=== PATIENT | female | born 1960 | race Caucasian/White ===

== ENCOUNTER 2020-02-18 09:16 | Outpatient (CLI) | payer OTHER, SELFPAY ==
--- NOTE | 2020-02-18 09:26 | XRR_ITS ---
PROCEDURE INFORMATION: Exam: XR Left Wrist Exam date and time: 02/18/2020 9:34 AM Age: 59 years old Clinical indication: Pain; Wrist; Left; Prior surgery; Additional info: Pain in left wrist TECHNIQUE: Imaging protocol: XR Left wrist. Views: 3 or more views. COMPARISON: No relevant prior studies available. FINDINGS: Bones/joints: Postsurgical changes are present. The trapezium has been resected. No fracture or other acute bony abnormalities are seen. Mild chronic degenerative changes are present with mild joint space narrowing and tiny osteophyte formation. Soft tissues: Normal. XR/XR wrist LT min 3V* [id number] IMPRESSION: 1. Surgical resection of the trapezium. 2. Mild degenerative disease.
== END 2020-02-18 09:17 | disposition home or self-care (01) ==
LOC: RAD 09:23
PROVIDERS: PCP Nurse Practitioner; Visit Provider Nurse Practitioner Family
DX: M25.532 Pain in left wrist (principal)
CPT/HCPCS: 73110

== ENCOUNTER 2020-05-29 08:17 | Outpatient (CLI) | payer OTHER, SELFPAY ==
--- NOTE | 2020-05-29 08:30 | US_ITS ---
WS: [id number] ULTRASOUND ABDOMEN LIMITED CLINICAL INFORMATION: ELEVATED LIVER ENZYMES COMPARISON: None. FINDINGS: Liver Size: Enlarged Craniocaudal length: 18.6 cm. Echogenicity: Dense consistent with fatty infiltration Surface nodularity: None. Mass (size and location): None. Bile ducts Intrahepatic ducts: Normal. Common bile duct diameter: 0.4 cm. Gallbladder Normal. Gallstones: None. Gallbladder sludge: None. Gallbladder wall thickening: None. Pericholecystic fluid: None. Sonographic Black sign: Absent. Pancreas Normal as visualized. Right kidney: Normal. Hydronephrosis: None. Size: 11.9 cm x 5.3 cm x 4.3 cm. Abdominal aorta and IVC Visualized portions are normal. Ascites: None. US/US abdomen limited [id number] IMPRESSION: 1. Hepatomegaly with diffuse fatty infiltration. 2. Normal gallbladder and common bile duct. 3. No hydronephrosis in right kidney. 4. Normal common bile duct.
== END 2020-05-29 08:18 | disposition home or self-care (01) ==
LOC: RAD 08:23
PROVIDERS: PCP Nurse Practitioner Family; Visit Provider Nurse Practitioner Family
DX: R74.8 Abnormal levels of other serum enzymes (principal); R16.0 Hepatomegaly, not elsewhere classified; K76.0 Fatty (change of) liver, not elsewhere classified
CPT/HCPCS: 76705

== ENCOUNTER 2020-07-29 09:26 | Outpatient (CLI) | payer OTHER, SELFPAY ==
--- NOTE | 2020-07-29 09:35 | XR_ITS ---
WS: [id number] CHEST 2 VIEWS HISTORY: COUGH/FATIGUE COMPARISON: None available. Lungs: Slight elevation of the RIGHT hemidiaphragm. Prominent epicardial fat pad. No pneumonia. Silvia l vascularity. Cardiac size: Normal. Mediastinum/Aorta: Normal mediastinum. Bones: Normal. XR/XR chest 2V* [id number] IMPRESSION: Normal chest.
== END 2020-07-29 09:27 | disposition home or self-care (01) ==
PROVIDERS: PCP Nurse Practitioner Family; Visit Provider Nurse Practitioner Family
DX: R05 Cough (principal); R53.83 Other fatigue
CPT/HCPCS: 71046

== ENCOUNTER 2020-09-26 07:04 | Outpatient (CLI) | payer OTHER, SELFPAY ==
--- NOTE | 2020-09-26 07:14 | USCV_ITS ---
Gege Fitzpatrick Age: 60 Gender: F : 1960 Exam Date: 09/26/2020 07:29 Ordering Phys: Rylee Estrada NP Technologist: LESTER Exam Location: [facility] – [place] Indication: POST COVID FATIGUE BP: 120 / 87 HR: 97 Rhythm: Sinus Technical Quality: Adequate MEASUREMENTS (Male / Female) Normal Values 2D ECHO LV Chamber Size 2.8 cm RV Chamber Size 3.1 cm LVOT Diameter 2.7 cm LA Diameter 3.0 cm LA Width 2.2 cm LA Height 3.3 cm RA Width 3.4 cm RA Height 3.6 cm Aorta at Sinotubular Diameter 2.3 cm M-MODE LV Diastolic Diameter MM 3.7 cm 4.2 - 5.9 / 3.9 - 5.3 cm LV Systolic Diameter MM 2.4 cm LV Ejection Fraction MM Teich 64.6 % IVS Diastolic Thickness MM 0.9 cm 0.6 - 1.0 / 0.6 - 0.9 cm IVS Systolic Thickness MM 1.7 cm LVPW Diastolic Thickness MM 1.3 cm 0.6 - 1.0 / 0.6 - 0.9 cm LVPW Systolic Thickness MM 2.1 cm RV Diastolic Diameter MM 2.7 cm Aortic Annulus Diameter 3.3 cm LA Ao Ratio MM 1.0 MV E Point Septal Separation 0.6 cm DOPPLER AV Peak Velocity 122.0 cm/s LVOT Peak Velocity 81.0 cm/s AV Area Cont Eq vti 4.9 cm squared AV Area Cont Eq pk 3.8 cm squared MV Area PHT 4.8 cm squared Mitral E to A Ratio 0.7 MV E' Velocity 33.5 cm/s Mitral E to MV E' Ratio 5.8 Mitral E to LV E' Lateral Ratio 4.7 Mitral E to LV E' Septal Ratio 7.8 TR Peak Velocity 97.6 cm/s TR Peak Gradient 3.8 mmHg TR Mean Velocity 79.2 cm/s TR Mean Gradient 2.7 mmHg TR Velocity Time Integral 23.1 cm TV Peak E Velocity 70.0 cm/s Right Atrial Pressure 3.0 mmHg Pulmonary Artery Systolic Pressu 6.8 mmHg PV Peak Velocity 57.0 cm/s RV Acceleration Time 0.1 s RV Ejection Time 0.3 s RV AcT/ET 0.5 FINDINGS Left Ventricle Normal left ventricular cavity size. Normal left ventricular wall thickness. Normal left ventricular systolic function. Left ventricular ejection fraction is estimated at 65%. No regional wall motion abnormalities. Grade I diastolic dysfunction (abnormal relaxation filling pattern), normal to mildly elevated filling pressures. Right Ventricle Normal right ventricular size and systolic function. RVSP could not be calculated due to incomplete tricuspid regurgitation velocity profile. Right Atrium Normal right atrial size. Left Atrium Normal left atrial size. Mitral Valve Mild mitral annular calcification. Mildly thickened mitral valve. No mitral valve stenosis. Trace mitral valve regurgitation. Aortic Valve Mildly thickened trileaflet aortic valve. No aortic valve stenosis. No aortic valve regurgitation. Tricuspid Valve Structurally normal tricuspid valve. No tricuspid valve stenosis. Trace to mild tricuspid valve regurgitation. Pulmonic Valve Structurally normal pulmonic valve. Pericardium No pericardial effusion. Aorta Normal-sized aortic root. CONCLUSIONS 1. Normal left ventricular cavity size, wall thickness and systolic function. Left ventricular ejection fraction is estimated at 65%. No regional wall motion abnormalities. Grade I diastolic dysfunction (abnormal relaxation filling pattern), normal to mildly elevated filling pressures. 2. Normal right ventricular size and systolic function. 3. Trace to mild tricuspid valve regurgitation. 4. No prior similar studies to compare. Sandy Villegas MD (Electronically Signed) Final Date: 29 September 2020 18:00 S
== END 2020-09-26 07:05 | disposition home or self-care (01) ==
PROVIDERS: PCP Nurse Practitioner Family; Visit Provider Nurse Practitioner Family
DX: R53.83 Other fatigue (principal); R05 Cough; G47.10 Hypersomnia, unspecified; I07.1 Rheumatic tricuspid insufficiency
CPT/HCPCS: 93306

== ENCOUNTER 2020-09-29 12:00 | Outpatient (CLI) | payer OTHER, SELFPAY | END 2020-09-29 12:01 | disposition home or self-care (01) | LOC: SLEEP 09-30 10:31 | PROVIDERS: PCP Nurse Practitioner Family; Visit Provider Nurse Practitioner Family | DX: G47.10 Hypersomnia, unspecified (principal); R53.83 Other fatigue | CPT/HCPCS: G0399 ==

== ENCOUNTER 2020-11-17 07:32 | Outpatient (CLI) | payer OTHER, SELFPAY ==
--- NOTE | 2020-11-17 07:35 | ECG_ITS ---
[facility] Test Date: 2020-11-17 Pat Name: Gege Fitzpatrick Department: Room: Gender: Female Back Sizer: : 1960 Requested By: Rylee Estrada Order Number: [id number] Gaxiola MD: Isma Pérez M.D. Interpretive Statements NAME OF STUDY: LEXISCAN SESTAMIBI STRESS TEST INDICATION: [Shortness of Breath, ] Procedure: At the baseline, the blood pressure was 140/83 mmHg with a heart rate of 69 bpm. The electrocardiogram showed normal sinus rhythm, normal axis with normal ST and T's. The Lexiscan was infused over a period of 20 seconds. A total of 0.4 mg of Lexiscan was infused. The stress phase was continued for a total of 5 minutes. Heart rate was at the end of stress phase was 99 bpm and a blood pressure of 131/79 mmHg. The EKG at the peak infusion revealed since normal sinus rhythm with no significant ST-T wave changes. Sestamibi was injected 20 seconds after the Lexiscan infusion. Blood pressure at the end of recovery phase was 134/76 mmHg with a heart rate of 94 bpm. Conclusion: 1. Normal EKG response to Lexiscan infusion 2. No Lexiscan induced chest pain or cardiac arrhythmia. 3. Normal blood pressure and heart rate response. 4. Sestamibi/sestamibi perfusion scan pending; see separate report. Electronically Signed On 12-15-2020 10:25:00 ATTENDANT CHILD ACTIVITY by Isma Pérez M.D. [email or web address]
--- NOTE | 2020-11-17 07:36 | NMCV_ITS ---
NM madeleine perf SPECT r/s* [id number] Gege Fitzpatrick Age: 60 Gender: F : 1960 Exam Date: 11/17/2020 08:23 Ordering Phys: Rylee Estrada NP Technologist: TODD Haddad Exam Location: [facility] Indications: SHORTNESS OF BREATH STRESS TEST Please see separate stress test report in [facility] for full findings IMAGE PROTOCOL Rest/Stress 1 Lexiscan Day Radiopharmaceutical Dose (mCi) Administration Site Administered by Rest: Tc-99m 10.7 IV TODD Koch Sestamibi Stress:Tc-99m 32.4 IV TODD Haddad Sestamichao Rest: 17-Nov-2020 60 Discovery 630 Stress: 17-Nov-2020 30 Discovery 630 0.4mg Lexiscan. Images obtained in supine and prone position. SPECT RESULTS Technical Quality: Excellent Raw Data Analysis: Normal Image Corrections: No attenuation or motion correction applied Summed Stress Score: 1 Summed Rest Score: 0 Summed Difference Score: 1 PERFUSION FINDINGS There is small in size, reversible perfusion defect noted in the inferolateral wall FUNCTIONAL RESULTS (calculated via Gated SPECT) Stress Image LV EF (%): 67 Stress EDV (mL):83 TID: 0.91 Stress ESV (mL):27 FUNCTIONAL FINDINGS: There is normal left ventricular systolic function. IMPRESSIONS 1. There is a small in size, reversible perfusion defect in the inferolateral wall. This is consistent with small area of ischemia in this territory 2. LV systolic function is normal Isma Pérez MD (Electronically Signed) Final Date: 17 November 2020 11:57 S
[2020-11-17 07:51] VITALS: BMI 30.2
[2020-11-17] MEDS: regadenoson 0.4 Mg/5 ml Syringe IVP (09:32)
[2020-11-17 09:52] VITALS: BP 131/79; PULSE 98
== END 2020-11-17 07:33 | disposition home or self-care (01) ==
LOC: CDL 07:34
PROVIDERS: PCP Nurse Practitioner Family; Visit Provider Nurse Practitioner Family
DX: R06.02 Shortness of breath (principal)
CPT/HCPCS: 78452; 93017; A9500; J2785

== ENCOUNTER 2021-01-13 09:15 | Outpatient (CLI) | payer OTHER, SELFPAY ==
--- NOTE | 2021-01-13 09:20 | XR_ITS ---
WS: [id number] Exam: XR hip BI 3-4V wo/w pel [id number] Date/Time of Exam: 01/13/2021 9:20 AM Reason For Exam: BILAT HIP PAIN The bilateral hips demonstrate no evidence of fracture or dislocation. The joint compartments are wel l-maintained. Normal bilateral soft tissues. XR/XR hip BI 3-4V wo/w pel [id number] IMPRESSION: 1. Normal bilateral hips
--- NOTE | 2021-01-13 09:20 | XR_ITS ---
WS: [id number] LEFT KNEE: 2 VIEW(S) TECHNIQUE: AP and lateral. HISTORY: BILAT KNEE PAIN COMPARISON: None available. Mild narrowing of the patellofemoral and medial compartment. Small marginal osteophytes from the medi al tibial plateau. There are also osteophytes along the posterior surface of the tibial plateau which could be contributing to joint space narrowing and pain. No osteochondral lesion or fracture. No joint effusion. No soft tissue abnormality. XR/XR knee LT 1-2V [id number] IMPRESSION: 1. Mild medial and patellofemoral compartment narrowing. 2. Hypertrophic bone formation along the posterior tibial plateau extends towa rds the joint space could be causing discomfort during movement.
--- NOTE | 2021-01-13 09:20 | XR_ITS ---
WS: [id number] RIGHT KNEE: 2 VIEW(S) TECHNIQUE: AP and lateral. HISTORY: BILAT KNEE PAIN COMPARISON: None available. No fracture or dislocation. Mild narrowing of the medial patellofemoral compartments. Osteophytic ridging from the posterior tibi al plateau. No joint effusion. No soft tissue abnormality. XR/XR knee RT 1-2V [id number] IMPRESSION: Mild degenerative changes in the medial and patellofemoral compartments. No fra cture.
== END 2021-01-13 09:16 | disposition home or self-care (01) ==
PROVIDERS: PCP Nurse Practitioner Family; Visit Provider Nurse Practitioner Family
DX: M25.561 Pain in right knee; M25.562 Pain in left knee; M25.551 Pain in right hip; M25.552 Pain in left hip
CPT/HCPCS: 73522; 73560

== ENCOUNTER 2021-08-24 10:50 | Outpatient (CLI) | payer MEDICAID, SELFPAY ==
--- NOTE | 2021-08-24 11:01 | XR_ITS ---
WS: [id number] XR hand RT min 3V* [id number] REASON FOR EXAM: PAIN OF R THUMB/OSTEOARTHRITIS FINDINGS: No fracture or focal bone lesion. Mild narrowing with subchondral sclerosis in the PIP and DIP joints of the fingers and thumb. Similar but more pronounced arthropathic findings in the metatarsal-phalangeal joint of the thumb. Si milar arthropathic findings in the carpal metacarpal joint of the thumb. XR/XR hand RT min 3V* [id number] IMPRESSION: Osteoarthritis in the right hand as above.
== END 2021-08-24 10:51 | disposition home or self-care (01) ==
PROVIDERS: PCP Nurse Practitioner Family; Visit Provider Nurse Practitioner Family
DX: M19.041 Primary osteoarthritis, right hand (principal)
CPT/HCPCS: 73130

== ENCOUNTER 2023-06-15 07:53 | Outpatient (CLI) | payer SELFPAY ==
[2023-06-15 08:36] LABS: Creatinine Urine, Random 81 mg/dL (28-217); Microalbum Creatinine Ratio Ur 12 mg/dL (0-20); Microalbumin Random Urine 1 ug/dL (0-20)
[2023-06-15 08:39] LABS: Alanine Aminotransferase 44 U/L (0-33); Albumin Level 4.2 g/dL (3.5-5.2); Alkaline Phosphatase 123 U/L (35-105); Anion Gap 17.4 (5-19); Aspartate Amino Transferase 29 U/L (0-32); Blood Urea Nitrogen 17 mg/dL (8-23); Calcium 8.3 mg/dL (8.5-10.5); Carbon Dioxide 21 mmol/L (22-29); Chloride 101 mmol/L (98-107); Cholesterol 147 mg/dL (0-200); Globulin 2.9 g/dL (1.3-4.6); Glomerular Filtration Rate 84.2 mL/min (90-130); Glucose 399 mg/dL (65-115); HDL Cholesterol 35 mg/dL (60-100); LDL Cholesterol Calculated 81 mg/dL (50-129); LDL HDL Ratio 2.31 RATIO (0.00-3.22); Osmolality Calculated 298 mOsm/kg (285-295); Potassium 4.4 mmol/L (3.5-5.1); Sodium 135 mmol/L (136-145); Total Bilirubin 0.3 mg/dL (0.15-1.2); Total Protein 7.1 g/dL (6.6-8.7); Triglycerides 157 mg/dL (0-150)
[2023-06-15 08:56] LABS: Estmated Average Glucose 214; Hemoglobin A1C 9.1 % (4.0-6.0)
== END 2023-06-15 07:54 | disposition home or self-care (01) ==
LOC: LAB 07:54
PROVIDERS: Internal Medicine; PCP Family Medicine; Visit Provider Family Medicine
DX: E11.65 Type 2 diabetes mellitus with hyperglycemia (principal)
CPT/HCPCS: 36415; 80053; 80061; 82044; 83036; 99214

== ENCOUNTER 2023-08-03 14:22 | Observation (INO) | payer MEDICAID, SELFPAY ==
[2023-08-03] VITALS (15 sets, daily range): BP systolic 108–142; BP diastolic 41–78; PULSE 83–104; RESP 16–20; TEMP 36.3–36.8; O2SAT 95–99; BMI 33.1
[2023-08-03 15:39] LABS: Basophils # 0.1 10^3/uL (0.0-0.1); Eosinophils # 0.3 10^3/uL (0.0-0.8); Eosinophils % 3.8 %; Hematocrit 23.2 % (36-47); Lymphocytes # 2.7 10^3/uL (0.8-4.8); Lymphocytes % 32.2 %; Mean Corpuscular HGB Conc 27.6 g/dL (30-55); Mean Corpuscular Hemoglobin 20.8 pg (27-33); Mean Corpuscular Volume 75.3 fl (85-98); Mean Platelet Volume 10.2 fL (7.4-10.4); Monocytes # 0.6 10^3/uL (0.2-0.9); Monocytes % 7.3 %; Neutrophils % 55.1 %; Nucleated Red Blood Cells % 0.5 %; Platelet Count 274 10^3/cmm (157-399); Red Blood Count 3.08 10^6/uL (3.85-5.65); Red Cell Distribution Width 19.9 % (12.1-15.1); White Blood Count 8.35 10^3/uL (3.29-11.43)
[2023-08-03 15:55] LABS: Alanine Aminotransferase 48 U/L (0-33); Albumin Level 3.9 g/dL (3.5-5.2); Alkaline Phosphatase 110 U/L (35-105); Anion Gap 17.5 (5-19); Aspartate Amino Transferase 55 U/L (0-32); Blood Urea Nitrogen 16 mg/dL (8-23); Calcium 8.4 mg/dL (8.5-10.5); Carbon Dioxide 19 mmol/L (22-29); Chloride 102 mmol/L (98-107); Globulin 2.9 g/dL (1.3-4.6); Glucose 375 mg/dL (65-115); Osmolality Calculated 295 mOsm/kg (285-295); Potassium 4.5 mmol/L (3.5-5.1); Sodium 134 mmol/L (136-145); Total Bilirubin 0.3 mg/dL (0.15-1.2); Total Protein 6.8 g/dL (6.6-8.7)
--- NOTE | 2023-08-03 16:44 | P.HP_ITS ---
Providers/Chief Complaint 2 Primary Care Provider: Tierra Thomas MD Chief Complaint: dr karen, severe anemia, needs blood History of Present Illness Gege Fitzpatrick is a 63 year old female with past medical history type 2 diabetes mellitus, restless leg syndrome, hypothyroidism, hyperlipidemia who presents to the ER from her primary care's office because of low hemoglobin seen on regular blood work. As per the patient her back pain has been getting worse recently for which she started taking Aleve along with Celebrex after that she is started having episodes of nausea vomiting for last few weeks on and off along with dizziness for started last week specially on standing up. In the ER she was found to have a hemoglobin of 6.4. She has not noticed any bloody or black tarry bowel movements. Denies of having any endoscopy in the past. Denies of having any blood transfusion in the past. Review of Systems 2 General: Reports: 10 or more systems reviewed and unremarkable except in HPI and below Const: Denies: fever(s), chills, body aches, change in appetite, change in weight, malaise, night sweats, diaphoresis, change in sleep pattern, daytime sleepiness or snoring Eyes: Denies: change in vision, blurry vision, photophobia, eye discomfort or eye discharge ENMT: Denies: throat pain, enlarged tonsils, hoarseness, mouth pain, oral sores, dry mouth, tinnitus, nasal congestion or post nasal drip Card: Denies: chest pain, palpitations, irregular heart rhythm, edema, swelling of feet/ankles, lightheadedness, syncope, pre-syncope, dyspnea on exertion, orthopnea, leg pain with exertion or acrocyanosis Resp: Denies: dyspnea, productive cough, non-productive cough, wheezing, stridor, pain on inspiration, change in phlegm color, hemoptysis or chest congestion GI: Denies: abdominal pain, nausea, vomiting, hematemesis, coffee ground emesis, dysphagia, heartburn, diarrhea, constipation, bloating, GI cramping, change in bowel habits, pain on defecation, hematochezia or melena : Denies: flank pain, dysuria, urinary frequency, urinary urgency, urinary hesitancy, nocturia or hematuria Musc: Denies: neck pain, back pain, extremity pain, joint pain, joint swelling, joint redness, joint stiffness or limited range of motion Neuro: Denies: headache(s), numbness in extremities, weakness in extremities, sensory changes, lack of coordination, difficulty walking, frequent falls, dizziness, vertigo, confusion, Slurred speech present, difficulty communicating thoughts or seizure-like activity Psych: Denies: anxiety, depression, mood swings, panic attacks, hopelessness or irritability Endo: Denies: polyuria, polydipsia, tired all the time, cold intolerance, excessive sweating, flushing or heat intolerance Aki/Lymph: Denies: easy bruising or easy bleeding All/Imm: Denies: tongue swelling, facial swelling or acute wheezing Medications/Allergies Home Medications Medication Instructions Recorded Confirmed Last Taken Type CPAP (Auto-Titrating CPAP) 07/27/22 06/15/23 Unknown History albuterol sulfate 90 mcg/actuation 2 inh inhalation Q6H PRN 07/27/22 06/15/23 Unknown History breath activated powder inhaler blood-glucose meter,continuous 07/27/22 06/15/23 Unknown History ([employer] G6 Can Patcher) blood-glucose sensor (Dexcom G6 07/27/22 06/15/23 Unknown History Sensor device) blood-glucose transmitter (Dexcom 07/27/22 06/15/23 Unknown History G6 Transmitter device) celecoxib 100 mg capsule 100 mg PO BID 07/27/22 06/15/23 Unknown History duloxetine 60 mg capsule,delayed 60 mg PO DAILY 07/27/22 06/15/23 Unknown History release gabapentin 300 mg capsule 300 mg PO DAILY 07/27/22 06/15/23 Unknown History levothyroxine 25 mcg tablet 25 mcg PO DAILY 07/27/22 06/15/23 Unknown History omeprazole 20 mg capsule,delayed 20 mg PO DAILY 07/27/22 06/15/23 Unknown History release ropinirole 3 mg tablet 3 mg PO DAILY 07/27/22 06/15/23 Unknown History simvastatin 20 mg tablet 20 mg PO DAILY 07/27/22 06/15/23 Unknown History tramadol 50 mg tablet 50 mg PO BID PRN 07/27/22 06/15/23 Unknown History empagliflozin 25 mg tablet 25 mg PO DAILY #90 tabs 01/17/23 06/15/23 Unknown Rx (Jardiance) insulin glargine 100 unit/mL (3 60 unit (0.6 mL) SUBCUT DAILY #55 01/17/23 06/15/23 Unknown Rx mL) subcutaneous pen (Lantus mL Solostar U-100 Insulin) pen needle, diabetic 32 gauge x #100 ea 01/17/23 06/15/23 Unknown Rx 1/4 (BD Ultra-Fine Micro Pen Needle) exenatide 5 mcg/dose (250 5 mcg (0.02 mL) SUBCUT BID 30 days 06/14/23 06/15/23 Unknown Rx mcg/mL)1.2 mL subcutaneous pen #1.2 mL injector ([facility]) exenatide 10 mcg/dose(250 10 mcg (0.04 mL) SUBCUT BID #2.4 mL 06/15/23 06/15/23 Unknown Rx mcg/mL)2.4 mL subcutaneous pen injector (Byetta) Allergies Allergy/AdvReac Type Severity Reaction Status Date / Time dulaglutide [From [facility]] Allergy Intermediate ALGY-Rash Verified 08/03/23 14:48 metformin Allergy Intermediate ADR-Diarrhe Verified 08/03/23 14:48 a Penicillins Allergy hives Verified 08/03/23 14:48 PFSH Acute 2 PFSH: Medical History (Updated 08/03/23 @ 16:53 by oDm Walls MD) Osteoarthritis Peripheral neuropathy Sleep apnea Restless leg syndrome Hypothyroidism Breast hypertrophy Type 2 diabetes mellitus with hyperglycemia Surgical History (Updated 08/03/23 @ 16:53 by Dom Walls MD) History of bilateral breast reduction surgery History of hysterectomy History of bilateral tubal ligation Hx of lumpectomy Social History Smoking and tobacco/nicotine status: never used tobacco/nicotine Vitals/I&O/Wt Last Vital Signs Temp 97.4 F L 08/03/23 14:43 Pulse 88 08/03/23 16:18 Resp 16 08/03/23 14:43 BP 125/78 08/03/23 16:18 Pulse Ox 95 08/03/23 16:18 O2 Del Method Room Air 08/03/23 16:18 Weight last 48 hrs Weight 98.883 kg Physical Exam 2 Narrative: General: No acute distress, AO x3, pallor present, pleasant HEENT: PERRLA, pupils bilaterally equal and reactive Chest: Normal vesicular breath sounds, no added sounds, equal good air entry bilaterally CVS: S1-S2 regular, no murmurs, no tachycardia, no gallops, no rubs Abdomen: Soft, nontender, no organomegaly, bowel sounds present Neuro: No focal deficits, no facial deformity, AO x3, power 5/5 in all limbs Data 08/03/23 14:56 08/03/23 14:56 A&P Assessment and plan (1) Anemia: Unknown etiology. Denies any melena. Symptomatic with episodes of dizziness. Patient does have episode of nausea and vomiting which could be in setting of GERD. Check stool for occult blood. Protonix 40 IV twice daily. Carafate before meals and at bedtime. If appointment is positive we will consult surgery for possible EGD. Otherwise the last patient to follow-up as an outpatient with surgical team for further evaluation. Already ordered 2 units of blood transfusion in the ER. Check ferritin, TIBC, LDH, vitamin B12, reticulocyte count, folate level. Monitor CBC in AM. (2) Type 2 diabetes mellitus with hyperglycemia: Insulin sliding scale low-dose protocol. Recent A1c of 9.1. Continue home dose of Lantus 60 units (3) Transaminitis: Bilirubin normal, alkaline phosphatase elevated. Check hepatitis panel, HIV, LDH. Liver ultrasound. Plan Clear carb consistent diet Protonix 40 mg twice daily will be sufficient for PUD prophylaxis SCD for DVT prophylaxis. Not on medical prophylaxis given admission for acute anemia. Attestations 2 Medical Necessity Statement*: Admission for less than 2 midnights for management of acute anemia requiring blood transfusion Diagnoses Anemia D64.9 Type 2 diabetes mellitus with hyperglycemia E11.65 Transaminitis R74.01
--- NOTE | 2023-08-03 16:45 | ED_ITS ---
HPI - Recheck/Abnormal Lab/Rx 2 General: Chief Complaint: Recheck/Abnormal Lab/Rx Stated Complaint: dr jones, severe anemia, needs blood Time Seen by Provider: 08/03/23 16:08 History of Present Illness: 63-year-old female with a history of obs tructive sleep apnea, COPD, diabetes, hypothyroidism, hyperlipidemia who presents emergency room with complaint of low blood count. She says her primary had drawn labs yesterday and called her today and told her hemoglobin was low and she needed to come to the emergency room. She has been very convinced that this is related to her restless legs. She has had restless leg issues and pain in her thighs for a couple of years now. She says over the last month or so she has become more weak and tired. She has been lightheaded. She has had shortness of breath. She has not noticed any dark tarry stools or blood in her stool. No jaundice. No abdominal pain. No nausea or vomiting. No altered mental status. No focal motor deficits. Review of Systems 2 Narrative: Constitutional symptoms: Negative except as documented in HPI. Skin symptoms: Negative except as documented in HPI. Eye symptoms: Negative except as documented in HPI. ENMT symptoms: Negative except as documented in HPI. Respiratory symptoms: Negative except as documented in HPI. Cardiovascular symptoms: Negative except as documented in HPI. Gastrointestinal symptoms: Negative except as documented in HPI. Genitourinary symptoms: Negative except as documented in HPI. Musculoskeletal symptoms: Negative except as documented in HPI. Neurologic symptoms: Negative except as documented in HPI. Psychiatric symptoms: Negative except as documented in HPI. Endocrine symptoms: Negative except as documented in HPI. PFSH ED 2 PFSH: Medical History Type 2 diabetes mellitus with hyperglycemia Surgical History (Updated 08/03/23 @ 16:53 by Dom Walls MD) History of bilateral breast reduction surgery History of hysterectomy History of bilateral tubal ligation Hx of lumpectomy Social History Smoking and tobacco/nicotine status: never used tobacco/nicotine Physical Exam 2 Narrative: EXAM NARRATIVE: General: Alert, no acute distress. Skin: Warm, dry. Pale Head: Normocephalic, atraumatic. Neck: Supple, trachea midline. Eye: Extraocular movements are intact. Ears, nose, mouth and throat: mucosa moist. Cardiovascular: Regular, Normal peripheral perfusion. Respiratory: Lungs are clear to auscultation, respirations are non-labored, breath sounds are equal, Symmetrical chest wall expansion. Gastrointestinal: Soft, Nontender, Non distended Musculoskeletal: Normal ROM, no deformity. Neurological: Alert and oriented, No focal neurological deficit observed. Psychiatric: Cooperative, appropriate mood & affect. Course 2 Vital Signs: Vital signs: Vital Signs Temperature 97.4 F L 08/03/23 14:43 Pulse Rate 88 08/03/23 16:18 Respiratory Rate 16 08/03/23 14:43 Blood Pressure 125/78 08/03/23 16:18 Pulse Oximetry 95 08/03/23 16:18 Oxygen Delivery Me thod Room Air 08/03/23 16:18 MDM - Recheck/Abnormal Lab/Rx Medical Decision Making Medical decision making: Differential diagnosis including but not limited to and based on the above HPI, review of systems and physical exam: CBC, BMP and type and screen ordered initially. Have also added anemia studies. Orders placed to evaluate differential diagnosis based on the above differential, HPI and physical exam Lab Review: Laboratory results were reviewed and interpreted by myself the emergency room physician. Patient has a significant microcytic anemia with a hemoglobin of 6.4. No evidence of recent upper GI bleeding as her BUN and creatinine are 16 and 0.9. Her sugar is a bit high today at 375. I reviewed the patient's medical record. Reexamination: Patient remained stable. No increased work of breathing. No altered mental status. No focal motor deficits. Consultation: I spoke with Dr. Reid who agrees to observation and he will follow-up on the anemia studies. Assessment and plan: Microcytic anemia -I discussed the patient with the hospitalist on-call who is admitting the patient. - Discussed findings and plan with patient. Answered any questions. - All laboratory values were reviewed and interpreted personally by myself, the ER physician - All imaging was reviewed and interpreted personally by myself, the ER physician. - Evaluation and treatment of this problem were appropriate in the emergency setting Lab Data 08/03/23 14:56 08/03/23 14:56 Laboratory Results WBC 8.35 10^3/uL (3.29-11.43) 08/03/23 14:56 RBC 3.08 10^6/uL (3.85-5.65) L 08/03/23 14:56 Hgb 6.40 g/dL (11.27-16.99) L* 08/03/23 14:56 Hct 23.2 % (36-47) L 08/03/23 14:56 MCV 75.3 fl (85-98) L 08/03/23 14:56 MCH 20.8 pg (27-33) L 08/03/23 14:56 MCHC 27.6 g/dL (30-55) L 08/03/23 14:56 RDW 19.9 % (12.1-15.1) H 08/03/23 14:56 Plt Count 274 10^3/cmm (157-399) 08/03/23 14:56 MPV 10.2 fL (7.4-10.4) 08/03/23 14:56 Neut % (Auto) 55.1 % 08/03/23 14:56 Lymph % (Auto) 32.2 % 08/03/23 14:56 [place] % (Auto) 7.3 % 08/03/23 14:56 Eos % (Auto) 3.8 % 08/03/23 14:56 Baso % (Auto) 1.0 % 08/03/23 14:56 Neut # (Auto) 4.60 10^3/uL (1.8-7.7) 08/03/23 14:56 Lymph # (Auto) 2.7 10^3/uL (0.8-4.8) 08/03/23 14:56 [place] # (Auto) 0.6 10^3/uL (0.2-0.9) 08/03/23 14:56 Eos # (Auto) 0.3 10^3/uL (0.0-0.8) 08/03/23 14:56 Baso # (Auto) 0.1 10^3/uL (0.0-0.1) 08/03/23 14:56 Nucleated RBC % (auto) 0.5 % 08/03/23 14:56 Nucleated RBCs # 0.0 /100WBC 08/03/23 14:56 Sodium 134 mmol/L (136-145) L 08/03/23 14:56 Potassium 4.5 mmol/L (3.5-5.1) 08/03/23 14:56 Chloride 102 mmol/L (98-107) 08/03/23 14:56 Carbon Dioxide 19 mmol/L (22-29) L 08/03/23 14:56 Anion Gap 17.5 (5-19) 08/03/23 14:56 BUN 16 mg/dL (8-23) 08/03/23 14:56 Creatinine 0.9 mg/dL (0.5-0.9) 08/03/23 14:56 GFR Calculation 63.0 mL/min (90-130) L 08/03/23 14:56 Glucose 375 mg/dL (65-115) H 08/03/23 14:56 Calculated Osmolality 295 mOsm/kg (285-295) 08/03/23 14:56 Calcium 8.4 mg/dL (8.5-10.5) L 08/03/23 14:56 Total Bilirubin 0.3 mg/dL (0.15-1.2) 08/03/23 14:56 AST 55 U/L (0-32) H 08/03/23 14:56 ALT 48 U/L (0-33) H 08/03/23 14:56 Alkaline Phosphatase 110 U/L (35-105) H 08/03/23 14:56 Total Protein 6.8 g/dL (6.6-8.7) 08/03/23 14:56 Albumin 3.9 g/dL (3.5-5.2) 08/03/23 14:56 Globulin 2.9 g/dL (1.3-4.6) 08/03/23 14:56 Blood Type O Positive 08/03/23 14:34 Rho(D) Type Rh positive 08/03/23 14:34 Antibody Screen Negative 08/03/23 14:34 No radiology studies performed this visit Discharge Plan Discharge Patient Disposition: Placed in Observation Clinical Impression: Microcytic anemia Coding Level of Care Code ED Beater Machine Operator for Kassie Adams
--- NOTE | 2023-08-03 16:53 | USR_ITS ---
PROCEDURE INFORMATION: Exam: US Abdomen, Limited; Right Upper Quadrant Exam date and time: 08/03/2023 5:59 PM Age: 63 years old Clinical indication: Other: Transaminitis; Additional info: Transaminitis, elevated alp TECHNIQUE: Imaging protocol: Real time ultrasound of the abdomen with image documentation. Limited exam focused on the right upper quadrant. COMPARISON: US abdomen limited [id number] 05/29/2020 8:44 AM FINDINGS: Liver: There is diffuse increased echogenicity of the hepatic parenchyma consistent with fatty infiltration. No hepatic masses are identified by ultrasound. Liver is enlarged. Gallbladder: The gallbladder is normal. The wellness ambassador reports a negative sonographic Black's sign. Biliary ducts: There is no evidence of intra or extrahepatic ductal dilatation. The common bile duct measures 5 mm. Pancreas: The visualized portions of the pancreas are within normal limits. The tail is obscured by bowel gas. Right kidney: The right kidney is normal. There is no evidence of renal calcification or hydronephrosis. The right kidney measures 11 cm in length. Aorta: The aorta is within normal limits. Inferior vena cava: The inferior vena cava is within normal limits. Portal venous: The portal vein is patent. US/US liver [id number] IMPRESSION: 1. Enlarged, fatty liver. 2. Otherwise unremarkable right upper quadrant ultrasound.
[2023-08-03] MEDS: pantoprazole 40 mg SDV IVP (17:03)
[2023-08-03 17:26] LABS: Reticulocyte % 2.4 % (0.5-2.0)
[2023-08-03 18:01] LABS: Lactic Sepsis W/Reflex 0.6 mmol/L (0.5-2.2)
[2023-08-03 18:02] LABS: Acetaminophen < 5.0 ug/mL (10-30); Alcohol Level < 10 mg/dL (0-10); Ferritin 8 ng/mL (15-150); Iron 25 ug/dL (37-145); Lactate Dehydrogenase 118 U/L (135-214); Percent Saturation 6.3 % (20-50); Salicylate < 0.3 mg/dL (3-10); Total Iron Binding Capacity 396 mcg/dl; Unsaturated Iron Binding 371 ug/dL (112-347)
[2023-08-03 18:15] LABS: Folate Level 8.9 ng/mL (4.8-37.3)
[2023-08-03 18:16] LABS: Vitamin B12 343 pg/mL (232-1245)
[2023-08-03 18:54] LABS: Gamma Glutamyl Transferase 27 U/L (5-36)
[2023-08-03 19:50] LABS: HIV 1 & 2 Antibody Non-Reactive (Non-Reactiv); HIV 1 & 2 Antigen Non-Reactive (Non-Reactiv)
[2023-08-03 19:56] LABS: Thyroid Stimulating Hormone 2.16 uIU/mL (0.27-4.20)
[2023-08-03 21:01] LABS: Glucose Point of Care 179 mg/dL (70-110)
[2023-08-03] MEDS: insulin lispro 100 unit/1 mL SUBCUT (21:39)
[2023-08-03] MEDS: sucralfate 1 gm/10 mL Oral Liq UDC PO (21:39)
[2023-08-03 22:13] LABS: Hepatitis A Antibody IgM Non-Reactive (Nonreactive); Hepatitis B Core AB, Total Non-Reactive (Nonreactive); Hepatitis B Surface Antigen Non-Reactive (Nonreactive); Hepatitis C Virus Antibody Non-Reactive (Nonreactive)
[2023-08-03 22:22] LABS: Add Urine Microscopic? YES; Bilirubin Urine Neg (Negative); Blood Urine Neg (Negative); Glucose Urine UA 4+ (Normal); Ketones Urine Negative (Negative); Leukocyte Esterase Urine Trace (Negative); Nitrate Urine Negative (Negative); Protein Urine Neg (Negative); Urine Appearance Slightly Cloudy (CLEAR); Urine Color Yellow (Yellow); Urobilinogen Urine Neg (Negative); pH Urine 5 (5-7)
[2023-08-03 22:23] LABS: Add Urine Culture? No; Bacteria Urine 2+ /hpf; Mucus Urine 2+ /hpf; RBC Urine 0-4 /hpf (0-2); Squamous Epithelial Cell Urine 15-25 /hpf (0-5); WBC Urine 15-25 /hpf (0-5)
[2023-08-04] VITALS (7 sets, daily range): BP systolic 108–159; BP diastolic 64–81; PULSE 86–96; RESP 15–18; TEMP 36.7–37.2; O2SAT 95–97; BMI 33.1
[2023-08-04] MEDS: ropinirole 2 mg Tablet 3 MG PO (00:19)
[2023-08-04 01:29] LABS: Hepatitis B Surface AB 22.1 (11.5-1000)
[2023-08-04] MEDS: pantoprazole 40 mg SDV IVP (06:15)
[2023-08-04] MEDS: sucralfate 1 gm/10 mL Oral Liq UDC PO ×2 (06:15→11:17)
[2023-08-04 06:28] LABS: Glucose Point of Care 168 mg/dL (70-110)
[2023-08-04 07:31] LABS: Basophils # 0.1 10^3/uL (0.0-0.1); Basophils % 1.2 %; Eosinophils # 0.5 10^3/uL (0.0-0.8); Eosinophils % 7.5 %; Hematocrit 27.3 % (36-47); Lymphocytes # 2.6 10^3/uL (0.8-4.8); Lymphocytes % 35.5 %; Mean Corpuscular HGB Conc 28.9 g/dL (30-55); Mean Corpuscular Hemoglobin 21.6 pg (27-33); Mean Corpuscular Volume 74.8 fl (85-98); Mean Platelet Volume 10.3 fL (7.4-10.4); Monocytes # 0.5 10^3/uL (0.2-0.9); Neutrophils # 3.47 10^3/uL (1.8-7.7); Nucleated Red Blood Cells % 0.3 %; Platelet Count 249 10^3/cmm (157-399); Red Blood Count 3.65 10^6/uL (3.85-5.65); Red Cell Distribution Width 19.1 % (12.1-15.1); White Blood Count 7.24 10^3/uL (3.29-11.43)
[2023-08-04] MEDS: insulin lispro 100 unit/1 mL SUBCUT ×2 (07:47→12:38)
[2023-08-04 07:48] LABS: Alanine Aminotransferase 47 U/L (0-33); Albumin Level 3.8 g/dL (3.5-5.2); Alkaline Phosphatase 79 U/L (35-105); Anion Gap 12.8 (5-19); Aspartate Amino Transferase 48 U/L (0-32); Blood Urea Nitrogen 10 mg/dL (8-23); Calcium 8.3 mg/dL (8.5-10.5); Carbon Dioxide 21 mmol/L (22-29); Chloride 108 mmol/L (98-107); Globulin 2.5 g/dL (1.3-4.6); Glomerular Filtration Rate 100.6 mL/min (90-130); Glucose 148 mg/dL (65-115); Osmolality Calculated 288 mOsm/kg (285-295); Phosphorus 2.9 mg/dL (2.5-4.5); Potassium 3.8 mmol/L (3.5-5.1); Sodium 138 mmol/L (136-145); Total Bilirubin 0.9 mg/dL (0.15-1.2); Total Protein 6.3 g/dL (6.6-8.7)
[2023-08-04] MEDS: atorvastatin 40 mg Tablet 20 MG PO (09:50)
[2023-08-04] MEDS: gabapentin 300 mg Capsule PO (09:51)
[2023-08-04] MEDS: duloxetine 60 mg Capsule PO (09:51)
[2023-08-04] MEDS: insulin glargine 100 units/1 mL 60 UNIT SUBCUT (09:51)
[2023-08-04] MEDS: levothyroxine 25 mcg Tablet PO (09:51)
--- NOTE | 2023-08-04 11:26 | PM.DCS ---
Discharge Providers Date of Admission: 08/03/23 17:32 Date of Discharge: August 04, 2023 Attending Provider at Admission: Dom Walls MD Attending Provider at Discharge: Dom Walls MD Primary Care Provider: Tierra Thomas MD Diagnoses at Discharge Discharge Diagnosis (1) Anemia: Status: Acute (2) Type 2 diabetes mellitus with hyperglycemia: Status: Acute (3) Transaminitis: Status: Acute Reason for Visit Reason for Visit: dr karen, severe anemia, needs blood Hospital Course Hospital Course Gege Fitzpatrick is a 63 year old female with past medical history type 2 diabetes mellitus, restless leg syndrome, hypothyroidism, hyperlipidemia who presents to the ER from her primary care's office because of low hemoglobin seen on regular blood work. As per the patient her back pain has been getting worse recently for which she started taking Aleve along with Celebrex after that she is started having episodes of nausea vomiting for last few weeks on and off along with dizziness for started last week specially on standing up. In the ER she was found to have a hemoglobin of 6.4. She has not noticed any bloody or black tarry bowel movements. Denies of having any endoscopy in the past. Denies of having any blood transfusion in the past. Patient was admitted to the hospital further evaluation and management of acute anemia. She was transfused 2 unit of PRBC. Her hemoglobin appropriately came up to 7.9. Further blood work was done which was consistent with significant iron deficiency anemia. Patient did not have any bowel movements during hospitalization had stool for her but could not be checked. She has been discharged medically stable condition on oral iron supplementation, Protonix twice daily for next 4 weeks followed by once daily, Carafate ACHS for 4-week with advice to follow-up with surgery as an outpatient for possible endoscopy and colonoscopy. She should have a repeat CBC done in next 1 week. She is also advised to not take Aleve anymore though she would not continue taking Celebrex for now given significant back pain. Physical Exam Narrative: General: No acute distress, AO x3, pallor present, pleasant HEENT: PERRLA, pupils bilaterally equal and reactive Chest: Normal vesicular breath sounds, no added sounds, equal good air entry bilaterally CVS: S1-S2 regular, no murmurs, no tachycardia, no gallops, no rubs Abdomen: Soft, nontender, no organomegaly, bowel sounds present Neuro: No focal deficits, no facial deformity, AO x3, power 5/5 in all limbs Discharge Data Studies Completed and Pending Completed Studies During Hospitalization [place] [id number] Stat Ultrasound 08/03/23 16:53 Completed Pending at discharge Category Date Time Status Occult Blood Stool [Immunochemical Fecal OCB] Routine Lab 08/03/23 16:48 Uncollected Radiology Impressions Liver Ultrasound 08/03/23 16:53 IMPRESSION: 1. Enlarged, fatty liver. 2. Otherwise unremarkable right upper quadrant ultrasound. Laboratory Results WBC 7.24 10^3/uL (3.29-11.43) 08/04/23 06:31 RBC 3.65 10^6/uL (3.85-5.65) L 08/04/23 06:31 Hgb 7.90 g/dL (11.27-16.99) L 08/04/23 06:31 Hct 27.3 % (36-47) L 08/04/23 06:31 MCV 74.8 fl (85-98) L 08/04/23 06:31 MCH 21.6 pg (27-33) L 08/04/23 06:31 MCHC 28.9 g/dL (30-55) L 08/04/23 06:31 RDW 19.1 % (12.1-15.1) H 08/04/23 06:31 Plt Count 249 10^3/cmm (157-399) 08/04/23 06:31 MPV 10.3 fL (7.4-10.4) 08/04/23 06:31 Neut % (Auto) 48.0 % 08/04/23 06:31 Lymph % (Auto) 35.5 % 08/04/23 06:31 [place] % (Auto) 7.0 % 08/04/23 06:31 Eos % (Auto) 7.5 % 08/04/23 06:31 Baso % (Auto) 1.2 % 08/04/23 06:31 Reticulocyte % (Auto) 2.4 % (0.5-2.0) H 08/03/23 14:56 Neut # (Auto) 3.47 10^3/uL (1.8-7.7) 08/04/23 06:31 Lymph # (Auto) 2.6 10^3/uL (0.8-4.8) 08/04/23 06:31 [place] # (Auto) 0.5 10^3/uL (0.2-0.9) 08/04/23 06:31 Eos # (Auto) 0.5 10^3/uL (0.0-0.8) 08/04/23 06:31 Baso # (Auto) 0.1 10^3/uL (0.0-0.1) 08/04/23 06:31 Nucleated RBC % (auto) 0.3 % 08/04/23 06:31 Nucleated RBCs # 0.0 /100WBC 08/04/23 06:31 Haptoglobin 183.0 mg/L (30-200) 08/03/23 14:56 Sodium 138 mmol/L (136-145) 08/04/23 06:31 Potassium 3.8 mmol/L (3.5-5.1) 08/04/23 06:31 Chloride 108 mmol/L (98-107) H 08/04/23 06:31 Carbon Dioxide 21 mmol/L (22-29) L 08/04/23 06:31 Anion Gap 12.8 (5-19) 08/04/23 06:31 BUN 10 mg/dL (8-23) 08/04/23 06:31 Creatinine 0.6 mg/dL (0.5-0.9) 08/04/23 06:31 GFR Calculation 100.6 mL/min (90-130) 08/04/23 06:31 Glucose 148 mg/dL (65-115) H 08/04/23 06:31 POC Glucose 168 mg/dL (70-110) H 08/04/23 06:24 Calculated Osmolality 288 mOsm/kg (285-295) 08/04/23 06:31 Lactic Acid 0.6 mmol/L (0.5-2.2) 08/03/23 17:06 Calcium 8.3 mg/dL (8.5-10.5) L 08/04/23 06:31 Phosphorus 2.9 mg/dL (2.5-4.5) 08/04/23 06:31 Magnesium 2.0 mg/dL (1.7-2.3) 08/04/23 06:31 Iron 25 ug/dL (37-145) L 08/03/23 14:56 TIBC 396 mcg/dl 08/03/23 14:56 % Saturation 6.3 % (20-50) L 08/03/23 14:56 Unsat Iron Binding 371 ug/dL (112-347) H 08/03/23 14:56 Ferritin 8 ng/mL (15-150) L 08/03/23 14:56 Total Bilirubin 0.9 mg/dL (0.15-1.2) 08/04/23 06:31 GGT 27 U/L (5-36) 08/03/23 17:06 AST 48 U/L (0-32) H 08/04/23 06:31 ALT 47 U/L (0-33) H 08/04/23 06:31 Alkaline Phosphatase 79 U/L (35-105) 08/04/23 06:31 Lactate Dehydrogenase 118 U/L (135-214) L 08/03/23 14:56 Total Protein 6.3 g/dL (6.6-8.7) L 08/04/23 06:31 Albumin 3.8 g/dL (3.5-5.2) 08/04/23 06:31 Globulin 2.5 g/dL (1.3-4.6) 08/04/23 06:31 Vitamin B12 343 pg/mL (232-1245) 08/03/23 14:56 Folate 8.9 ng/mL (4.8-37.3) 08/03/23 14:56 TSH 2.16 uIU/mL (0.27-4.20) 08/03/23 14:56 Urine Color Yellow (Yellow) 08/03/23 22:08 Urine Appearance Slightly cloudy (CLEAR) 08/03/23 22:08 Urine pH 5 (5-7) 08/03/23 22:08 Ur Specific [place] 1.020 (1.005-1.030) 08/03/23 22:08 Urine Protein Neg (Negative) 08/03/23 22:08 Urine Glucose (UA) 4+ (Normal) H 08/03/23 22:08 Urine Ketones Negative (Negative) 08/03/23 22:08 Urine Blood Neg (Negative) 08/03/23 22:08 Urine Nitrate Negative (Negative) 08/03/23 22:08 Urine Bilirubin Neg (Negative) 08/03/23 22:08 Urine Urobilinogen Neg mg/dL (Negative) 08/03/23 22:08 Ur Leukocyte Esterase Trace (Negative) H 08/03/23 22:08 Urine RBC 0-4 /hpf (0-2) H 08/03/23 22:08 Urine WBC 15-25 /hpf (0-5) H 08/03/23 22:08 Ur Squamous Epith Cells 15-25 /hpf (0-5) H 08/03/23 22:08 Amorphous Sediment Not Reportable 08/03/23 22:08 Urine Bacteria 2+ /hpf (NONE) H 08/03/23 22:08 Urine Mucus 2+ /hpf 08/03/23 22:08 Urine Yeast Trace /hpf 08/03/23 22:08 Salicylates < 0.3 mg/dL (3-10) L 08/03/23 14:56 Acetaminophen < 5.0 ug/mL (10-30) L 08/03/23 14:56 Ethyl Alcohol < 10 mg/dL (0-10) 08/03/23 14:56 Hepatitis A IgM Ab Non-reactive (Nonreactive) 08/03/23 17:06 Hep Bs Antigen Non-reactive (Nonreactive) 08/03/23 17:06 Hep Bs Antibody 22.1 (11.5-1000) 08/03/23 17:06 Hep B Core Total Ab Non-reactive (Nonreactive) 08/03/23 17:06 Hepatitis C Antibody Non-reactive (Nonreactive) 08/03/23 17:06 HIV 1&2 Ab & HIV 1 Ag Non-reactive (Non-Reactiv) 08/03/23 17:06 HIV 1&2 Antibody Non-reactive (Non-Reactiv) 08/03/23 17:06 Blood Type O Positive 08/03/23 14:34 Rho(D) Type Rh positive 08/03/23 14:34 Antibody Screen Negative 08/03/23 14:34 Crossmatch See Detail 08/03/23 14:34 Vitals Last Vital Signs Temp 99.0 F 08/04/23 08:10 Pulse 86 08/04/23 08:10 Resp 16 08/04/23 08:10 BP 135/78 08/04/23 08:10 Pulse Ox 96 08/04/23 08:10 O2 Del Method Room Air 08/04/23 08:10 Discharge Plan Discharge Patient Disposition: Home Condition: Stable Prescriptions: New Protonix 40 mg tablet,delayed release (DR/EC) 40 mg PO QAM 90 Days Qty: 90 0RF Rx Instructions: BID for 4 weeks then daily Carafate 1 gram tablet 1 g PO BID 28 Days Qty: 56 0RF ferrous sulfate 325 mg (65 mg iron) tablet 325 mg PO BID Qty: 60 0RF Continued albuterol sulfate 90 mcg/actuation aerosol powdr breath activated 2 inh inhalation Q6H PRN (Reason: Shortness Of Breath) (DME) Auto-Titrating CPAP Device See Rx Instructions .Route Rx Instructions: As directed celecoxib 100 mg capsule 200 mg PO DAILY (DME) Dexcom G6 Care Management Coordinator Misc See Rx Instructions .Route Rx Instructions: As directed (DME) Dexcom G6 Sensor Device See Rx Instructions .Route Rx Instructions: As directed (DME) Dexcom G6 Transmitter Device See Rx Instructions .Route Rx Instructions: As directed duloxetine 60 mg capsule,delayed release(DR/EC) 60 mg PO DAILY gabapentin 300 mg capsule 300 mg PO DAILY levothyroxine 25 mcg tablet 25 mcg PO DAILY ropinirole 3 mg tablet 3 mg PO DAILY simvastatin 20 mg tablet 20 mg PO DAILY tramadol 50 mg tablet 50 mg PO BID PRN (Reason: Pain) (DME) pen needle, diabetic [BD Ultra-Fine Micro Pen Needle] 32 gauge x 1/4 needle See Rx Instructions .ROUTE .MEDSUPPLY Qty: 100 2RF Rx Instructions: As directed Jardiance 25 mg tablet 25 mg PO DAILY Qty: 90 1RF ondansetron 4 mg Tablet,Disintegrating 4 mg PO Q6H PRN (Reason: Nausea) sertraline 50 mg Tablet 50 mg PO DAILY [place] 10 mcg/dose(250 mcg/mL) 2.4 mL pen injector 10 mcg SUBCUT DAILY Rx Instructions: start after one month on 5mcg Lantus Solostar U-100 Insulin 100 unit/mL (3 mL) Insulin Pen 45 unit SUBCUT BID Discontinued omeprazole 20 mg capsule,delayed release(DR/EC) 40 mg PO DAILY Discharge Orders: Discharge Order (Routine); Ordered 08/04/23 Ordered By: Dom Walls Referrals: Carlos Hanley MD [Physician] - 1 month (Possible need of EGD for anemia on NSAIDs Dr. Hanley's Office has your information and will be calling you to schedule an appointment. You can also call their office with any questions or concerns. Thank you.) Tierra Thomas MD [Primary Care Provider] - 08/15/23 10:30 am (Your follow up appointment will be with Rylee Estrada. Dr. Thomas has no availability before then. They will then schedule you with Dr. Thomas for your next appointment. You can call the office with any questions or concerns. Thank you.) Discharge Diet: Regular Discharge Activity: Resume usual activity and Increase activity as tolerated Patient Instructions: Anemia, Iron Supplements (By mouth) (Duofer, Fe-20, Bifera, Madan-Iron), Sucralfate (By mouth) (Carafate), Pantoprazole (By mouth) (Protonix), Opioid Safety Activity Restrictions/Additional Instructions: Repeat CBC in 1 week and follow up with your PCP Take iron supplement with over the counter stool softner daily for atleast next 6 months. Take protonix 2 times a day for 4 weeks and then once daily. Discharge Attestations Time Spent in Discharge Care*: greater than 30 min Specific Discharge Activities: educating patient, educating and/or supporting family/caregiver, discussing with pcp/other providers, discussing with insurance case manager/social workers/dc planners, documenting/other paperwork and evaluating patient/reviewing data Quality Metrics Clinical Quality Measures [ No reported AMI, CVA or VTE this stay] Coding Level of Care Code 52162 Total time (in minutes) for Discharge: 60 Diagnoses Anemia D64.9 Type 2 diabetes mellitus with hyperglycemia E11.65 Transaminitis R74.01
[2023-08-04 11:41] LABS: Glucose Point of Care 200 mg/dL (70-110)
== END 2023-08-04 14:11 | disposition home or self-care (01) ==
LOC: ER 17:18 → MEDSURG 17:34
PROVIDERS: Emergency Medicine; Admitting Provider Student in an Organized Health Care Education/Training Program; Emergency Provider Emergency Medicine; PCP Family Medicine; Visit Provider Student in an Organized Health Care Education/Training Program
DX: D64.9 Anemia, unspecified (principal); E11.65 Type 2 diabetes mellitus with hyperglycemia; R74.01 Elevation of levels of liver transaminase levels; G25.81 Restless legs syndrome; E03.9 Hypothyroidism, unspecified; E78.5 Hyperlipidemia, unspecified; K76.0 Fatty (change of) liver, not elsewhere classified; M19.90 Unspecified osteoarthritis, unspecified site; G47.30 Sleep apnea, unspecified
CPT/HCPCS: 36415; 36416; 36430; 76705; 80053; 80307; 81001; 82607; 82728; 82746; 82962; 82977; 83010; 83540; 83550; 83605; 83615; 83735; 84100; 84443; 85025; 85045; 86705; 86706; 86709; 86803; 86850; 86900; 86920; 87340; 87806; 96372; 99285; C9113; G0378; J1815; P9016

== ENCOUNTER 2023-08-06 20:41 | Emergency (ER) | payer MEDICAID, SELFPAY ==
[2023-08-06 21:04] VITALS: BP 144/85; PULSE 87; RESP 18; TEMP 36.6; O2SAT 100; BMI 32.5
[2023-08-06 21:26] LABS: Basophils # 0.1 10^3/uL (0.0-0.1); Basophils % 0.9 %; Eosinophils # 0.1 10^3/uL (0.0-0.8); Hematocrit 29.5 % (36-47); Lymphocytes # 2.2 10^3/uL (0.8-4.8); Lymphocytes % 24.1 %; Mean Corpuscular HGB Conc 29.2 g/dL (30-55); Mean Corpuscular Volume 75.4 fl (85-98); Mean Platelet Volume 9.8 fL (7.4-10.4); Monocytes # 0.5 10^3/uL (0.2-0.9); Monocytes % 5.5 %; Neutrophils # 6.13 10^3/uL (1.8-7.7); Neutrophils % 67.6 %; Nucleated Red Blood Cells % 0.3 %; Platelet Count 274 10^3/cmm (157-399); Red Blood Count 3.91 10^6/uL (3.85-5.65); Red Cell Distribution Width 19.8 % (12.1-15.1); White Blood Count 9.06 10^3/uL (3.29-11.43)
--- NOTE | 2023-08-06 21:35 | ED_ITS ---
HPI - Nausea/Vomiting/Diarrhea 2 General: Chief complaint: Nausea/Vomiting/Diarrhea Stated complaint: N/V Time Seen by Provider: 08/06/23 21:34 History of Present Illness: 63-year-old female comes in today with c omplaints of nausea, weakness, and dizziness. Patient has a history of COPD, diabetes, anemia, restless legs, and high cholesterol. Patient had recently been in the hospital 2 days ago for anemia and 2 units of blood. Patient was discharged and felt well yesterday but today she woke up feeling dizzy and nauseous again. Patient reports it feels like when she had her decreased blood count. Patient brought in a stool sample to be checked for blood. Associated symtoms: Reports dizziness and headache(s) Review of Systems 2 General: Reports: 10 or more systems reviewed and unremarkable except in HPI and below Neuro: Reports: headache(s) and dizziness PFSH ED 2 PFSH: Medical History (Updated 08/06/23 @ 23:33 by BOUBACAR Jeong) Osteoarthritis Peripheral neuropathy Sleep apnea Restless leg syndrome Hypothyroidism Breast hypertrophy Type 2 diabetes mellitus with hyperglycemia Surgical History (Updated 08/03/23 @ 16:53 by Dom Walls MD) History of bilateral breast reduction surgery History of hysterectomy History of bilateral tubal ligation Hx of lumpectomy Social History Smoking and tobacco/nicotine status: never used tobacco/nicotine Physical Exam 2 Const: COMMON NORMALS: alert HENMT: COMMON NORMALS: normocephalic HEAD & SCALP: normocephalic Neck/C-Spine: COMMON NORMALS: full ROM Resp: COMMON NORMALS: normal respiratory effort and clear to auscultation bilaterally AUSCULTATION: clear to auscultation bilaterally Cardio: COMMON NORMALS: regular rate and regular rhythm RATE: regular rate RHYTHM: regular rhythm GI: COMMON NORMALS: non-tender Back/Pelvis: COMMON NORMALS: thoracic and lumbar spine normal to inspection Extremity: COMMON NORMALS: full ROM Neuro: SENSORIUM/ORIENTATION: Yes alert Skin: COMMON NORMALS: turgor normal GENERAL SKIN EXAM: turgor normal Course 2 Vital Signs: Vital signs: Vital Signs Temperature 98 F 08/06/23 21:04 Pulse Rate 87 08/06/23 21:04 Respiratory Rate 18 08/06/23 21:04 Blood Pressure 144/85 08/06/23 21:04 Pulse Oximetry 100 08/06/23 21:04 MDM - Nausea/Vomiting/Diarrhea Medical Decision Making 63-year-old female comes in today for complaints of lightheadedness and headache. On exam patient appears nontoxic. Reviewing the record we noted that patient had recently been admitted and discharged for blood transfusions due to anemia. Patient is awaiting follow-up with gastro for endoscopy. I further reviewed the record noted that patient's last hemoglobin was 7.9. Differential diagnoses includes anemia, stroke syndrome, ACS, malingering, hypotension orthostasis. CBC noted to increase in hemoglobin to 8.6, CMP was unremarkable. CT of the head was negative. Patient was given 1 L of IV fluids and Reglan with Benadryl for her headache. Patient had resolution of the headache and some improvement of dizziness. Believe patient most likely has some dizziness secondary to her anemia. Recommended continuing with plans for outpatient endoscopy and iron replacement therapy. Patient otherwise should maintain her chronic medical treatment. Patient reports understanding and agreed to plan and need for follow-up for worsening symptoms. Lab Data 08/06/23 21:12 08/06/23 21:[address] 08/06/23 21:40 IMPRESSION: No acute findings. Laboratory Results WBC 9.06 10^3/uL (3.29-11.43) 08/06/23 21:12 RBC 3.91 10^6/uL (3.85-5.65) 08/06/23 21:12 Hgb 8.60 g/dL (11.27-16.99) L 08/06/23 21:12 Hct 29.5 % (36-47) L 08/06/23 21:12 MCV 75.4 fl (85-98) L 08/06/23 21:12 MCH 22.0 pg (27-33) L 08/06/23 21:12 MCHC 29.2 g/dL (30-55) L 08/06/23 21:12 RDW 19.8 % (12.1-15.1) H 08/06/23 21:12 Plt Count 274 10^3/cmm (157-399) 08/06/23 21:12 MPV 9.8 fL (7.4-10.4) 08/06/23 21:12 Neut % (Auto) 67.6 % 08/06/23 21:12 Lymph % (Auto) 24.1 % 08/06/23 21:12 Pitkin % (Auto) 5.5 % 08/06/23 21:12 Eos % (Auto) 1.0 % 08/06/23 21:12 Baso % (Auto) 0.9 % 08/06/23 21:12 Neut # (Auto) 6.13 10^3/uL (1.8-7.7) 08/06/23 21:12 Lymph # (Auto) 2.2 10^3/uL (0.8-4.8) 08/06/23 21:12 Pitkin # (Auto) 0.5 10^3/uL (0.2-0.9) 08/06/23 21:12 Eos # (Auto) 0.1 10^3/uL (0.0-0.8) 08/06/23 21:12 Baso # (Auto) 0.1 10^3/uL (0.0-0.1) 08/06/23 21:12 Nucleated RBC % (auto) 0.3 % 08/06/23 21:12 Nucleated RBCs # 0.0 /100WBC 08/06/23 21:12 Sodium 137 mmol/L (136-145) 08/06/23 21:12 Potassium 4.1 mmol/L (3.5-5.1) 08/06/23 21:12 Chloride 104 mmol/L (98-107) 08/06/23 21:12 Carbon Dioxide 23 mmol/L (22-29) 08/06/23 21:12 Anion Gap 14.1 (5-19) 08/06/23 21:12 BUN 14 mg/dL (8-23) 08/06/23 21:12 Creatinine 0.6 mg/dL (0.5-0.9) 08/06/23 21:12 GFR Calculation 100.6 mL/min (90-130) 08/06/23 21:12 Glucose 162 mg/dL (65-115) H 08/06/23 21:12 Calculated Osmolality 288 mOsm/kg (285-295) 08/06/23 21:12 Calcium 9.0 mg/dL (8.5-10.5) 08/06/23 21:12 Total Bilirubin 0.4 mg/dL (0.15-1.2) 08/06/23 21:12 AST 26 U/L (0-32) 08/06/23 21:12 ALT 37 U/L (0-33) H 08/06/23 21:12 Alkaline Phosphatase 91 U/L (35-105) 08/06/23 21:12 Troponin T Baseline 8 ng/L (0-10) 08/06/23 21:12 Troponin T 120 Minute 6.00 ng/L (0-10) 08/06/23 23:03 Delta Troponin T -2.00 ABS# (0-10) L 08/06/23 23:03 Total Protein 7.0 g/dL (6.6-8.7) 08/06/23 21:12 Albumin 4.1 g/dL (3.5-5.2) 08/06/23 21:12 Globulin 2.9 g/dL (1.3-4.6) 08/06/23 21:12 Lipase 58 U/L (13-60) 08/06/23 21:12 All radiology interpretation(s) finalized by discharge Discharge Plan Discharge Patient Disposition: Home Clinical Impression: Headache Qualifiers: Headache type: unspecified Headache chronicity pattern: acute headache I ntractability: not intractable Qualified Code(s): R51.9 - Headache, unspecified Anemia Qualifiers: Anemia type: unspecified type Qualified Code(s): D64.9 - Anemia, unspecified Condition: Stable Prescriptions: No Action albuterol sulfate 90 mcg/actuation aerosol powdr breath activated 2 inh inhalation Q6H PRN (Reason: Shortness Of Breath) (DME) Auto-Titrating CPAP Device See Rx Instructions .Route Rx Instructions: As directed celecoxib 100 mg capsule 200 mg PO DAILY (DME) Dexcom G6 Customer Liaison Misc See Rx Instructions .Route Rx Instructions: As directed (DME) Dexcom G6 Sensor Device See Rx Instructions .Route Rx Instructions: As directed (DME) Dexcom G6 Transmitter Device See Rx Instructions .Route Rx Instructions: As directed duloxetine 60 mg capsule,delayed release(DR/EC) 60 mg PO DAILY gabapentin 300 mg capsule 300 mg PO DAILY levothyroxine 25 mcg tablet 25 mcg PO DAILY ropinirole 3 mg tablet 3 mg PO DAILY simvastatin 20 mg tablet 20 mg PO DAILY tramadol 50 mg tablet 50 mg PO BID PRN (Reason: Pain) (DME) pen needle, diabetic [BD Ultra-Fine Micro Pen Needle] 32 gauge x 1/4 needle See Rx Instructions .ROUTE .MEDSUPPLY Qty: 100 2RF Rx Instructions: As directed Jardiance 25 mg tablet 25 mg PO DAILY Qty: 90 1RF ondansetron 4 mg Tablet,Disintegrating 4 mg PO Q6H PRN (Reason: Nausea) sertraline 50 mg Tablet 50 mg PO DAILY Byetta 10 mcg/dose(250 mcg/mL) 2.4 mL pen injector 10 mcg SUBCUT DAILY Rx Instructions: start after one month on 5mcg Lantus Solostar U-100 Insulin 100 unit/mL (3 mL) Insulin Pen 45 unit SUBCUT BID Protonix 40 mg tablet,delayed release (DR/EC) 40 mg PO QAM 90 Days Qty: 90 0RF Rx Instructions: BID for 4 weeks then daily Carafate 1 gram tablet 1 g PO BID 28 Days Qty: 56 0RF ferrous sulfate 325 mg (65 mg iron) tablet 325 mg PO BID Qty: 60 0RF Discharge Orders: Discharge ED (Routine); Ordered 08/06/23 Ordered By: Maco Lugo Referrals: Tierra Thomas MD [Primary Care Provider] - Discharge Diet: Usual diet Discharge Activity: Increase activity as tolerated Patient Instructions: Anemia (ED) Activity Restrictions/Additional Instructions: Continue with healthy diet and routine medications as prescribed. Follow-up with primary care in 3 to 5 days for recheck. Return to ED for worsening symptoms such as noticeable blood in vomit or stool, severe shortness of breath, or new concerns. Coding Level of Care Code ED Packing Machine Tender for Kassie Adams
--- NOTE | 2023-08-06 21:40 | ECG_ITS ---
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 Measurements Intervals [place] Rate: 87 P: 58 GA: 167 QRS: 17 QRSD: 91 T: 46 QT: 377 QTc: 455 Interpretive Statements SINUS RHYTHM Possible left atrial enlargement LOW QRS VOLTAGE IN PRECORDIAL LEADS [QRS DEFLECTION < 1.0 mV IN CHEST LEADS] No previous ECG available for comparison Electronically Signed On 08-07-2023 21:00:38 CDT by Julissa Campbell M.D. [id number] f
--- NOTE | 2023-08-06 21:40 | CTR_ITS ---
PROCEDURE INFORMATION: Exam: CT Head Without Contrast Exam date and time: 08/06/2023 10:08 PM Age: 63 years old Clinical indication: Pain; Headache; Patient HX: C/O BROTHERS with nausea TECHNIQUE: Imaging protocol: Computed tomography of the head without contrast. Radiation optimization: All CT scans at this facility use at least one of these dose optimization techniques: automated exposure control; mA and/or kV adjustment per patient size (includes targeted exams where dose is matched to clinical indication); or iterative reconstruction. COMPARISON: No relevant prior studies available. RADIATION DOSE METRICS: Total DLP (mGy-cm): 998.98 FINDINGS: Brain: No acute intracranial hemorrhage. No territorial region of rosario-white dedifferentiation. No extra-axial collection. No mass effect or midline shift. 4 mm calcified extra-axial density on left parasagittal frontal convexity, may represent dural calcification or small partially calcified meningioma. Cerebral ventricles: No acute hydrocephalus. Paranasal sinuses: Visualized sinuses are well-aerated. No fluid levels. Mastoid air cells: Visualized mastoid air cells are well aerated. Orbital cavities: No acute abnormality. Bones: No acute fracture. Soft tissues: No acute abnormality. CT/CT head wo con* [id number] IMPRESSION: No acute findings.
[2023-08-06 21:43] LABS: Alanine Aminotransferase 37 U/L (0-33); Albumin Level 4.1 g/dL (3.5-5.2); Alkaline Phosphatase 91 U/L (35-105); Anion Gap 14.1 (5-19); Aspartate Amino Transferase 26 U/L (0-32); Blood Urea Nitrogen 14 mg/dL (8-23); Carbon Dioxide 23 mmol/L (22-29); Chloride 104 mmol/L (98-107); Creatinine Clr Calc Pharmacy 115.3941; Globulin 2.9 g/dL (1.3-4.6); Glomerular Filtration Rate 100.6 mL/min (90-130); Glucose 162 mg/dL (65-115); Lipase 58 U/L (13-60); Osmolality Calculated 288 mOsm/kg (285-295); Potassium 4.1 mmol/L (3.5-5.1); Sodium 137 mmol/L (136-145); Total Bilirubin 0.4 mg/dL (0.15-1.2)
[2023-08-06 22:01] LABS: Troponin(5th) Baseline 8 ng/L (0-10)
[2023-08-06] MEDS: sodium chloride 0.9% 1,000 ML 999 ML IV (22:16)
[2023-08-06] MEDS: ondansetron 2 mg/ML SDV 2 mL 4 MG IVP (22:17)
[2023-08-06] MEDS: metoclopramide 5 mg/mL SDV 2 mL 10 MG IVP (22:17)
[2023-08-06] MEDS: diphenhydrAMINE 50 mg/mL SDV 1mL 12.5 MG IVP (22:18)
[2023-08-06 23:37] LABS: Add Urine Microscopic? YES; Bilirubin Urine Neg (Negative); Blood Urine Neg (Negative); Glucose Urine UA 2+ (Normal); Ketones Urine Negative (Negative); Leukocyte Esterase Urine 1+ (Negative); Nitrate Urine Negative (Negative); Protein Urine Neg (Negative); Urine Appearance Clear (CLEAR); Urine Color Dark Yellow (Yellow); Urobilinogen Urine Neg (Negative); pH Urine 5 (5-7)
[2023-08-06 23:38] LABS: Bacteria Urine 1+ /hpf; Mucus Urine 1+ /hpf; RBC Urine 0-4 /hpf (0-2)
--- NOTE | 2023-08-06 23:40 | ECG_ITS ---
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 Measurements Intervals [place] Rate: 87 P: 58 NC: 167 QRS: 17 QRSD: 91 T: 46 QT: 377 QTc: 455 Interpretive Statements SINUS RHYTHM LOW QRS VOLTAGE IN PRECORDIAL LEADS [QRS DEFLECTION < 1.0 mV IN CHEST LEADS] No previous ECG available for comparison Electronically Signed On 08-07-2023 21:10:51 CDT by Julissa Campbell M.D. [id number]
[2023-08-07 00:07] VITALS: BP 150/85; PULSE 93; RESP 16; O2SAT 92
== END 2023-08-07 00:05 | disposition home or self-care (01) ==
PROVIDERS: Emergency Medicine; Emergency Provider Nurse Practitioner Family; PCP Family Medicine
DX: R51.9 Headache, unspecified (principal); D64.9 Anemia, unspecified; Z79.4 Long term (current) use of insulin; E11.42 Type 2 diabetes mellitus with diabetic polyneuropathy
CPT/HCPCS: 36415; 70450; 80053; 81001; 82274; 83690; 84484; 85025; 93005; 96361; 96374; 96375; 99285; J1200; J2405; J2765; J7030

== ENCOUNTER 2023-09-19 11:11 | Outpatient (CLI) | payer MEDICAID, SELFPAY ==
[2023-09-19 11:35] LABS: Basophils # 0.1 10^3/uL (0.0-0.1); Basophils % 1.1 %; Eosinophils # 0.2 10^3/uL (0.0-0.8); Eosinophils % 2.1 %; Hematocrit 32.8 % (36-47); Lymphocytes # 4.2 10^3/uL (0.8-4.8); Lymphocytes % 40.6 %; Mean Corpuscular HGB Conc 29.9 g/dL (30-55); Mean Corpuscular Volume 80.4 fl (85-98); Mean Platelet Volume 9.8 fL (7.4-10.4); Monocytes # 0.6 10^3/uL (0.2-0.9); Monocytes % 5.4 %; Neutrophils % 50.4 %; Nucleated Red Blood Cells % 0.3 %; Platelet Count 379 10^3/cmm (157-399); Red Blood Count 4.08 10^6/uL (3.85-5.65); Red Cell Distribution Width 22.5 % (12.1-15.1); White Blood Count 10.32 10^3/uL (3.29-11.43)
[2023-09-19 11:54] LABS: Alanine Aminotransferase 44 U/L (0-33); Albumin Level 4.6 g/dL (3.5-5.2); Alkaline Phosphatase 85 U/L (35-105); Anion Gap 16.8 (5-19); Aspartate Amino Transferase 41 U/L (0-32); Blood Urea Nitrogen 15 mg/dL (8-23); Calcium 8.8 mg/dL (8.5-10.5); Carbon Dioxide 22 mmol/L (22-29); Chloride 108 mmol/L (98-107); Chol HDL Ratio 2.76 mg/dL (0.0-4.40); Cholesterol 116 mg/dL (0-200); Globulin 2.8 g/dL (1.3-4.6); Glomerular Filtration Rate 72.2 mL/min (90-130); Glucose 108 mg/dL (65-115); HDL Cholesterol 42 mg/dL (60-100); LDL Cholesterol Calculated 58 mg/dL (50-129); LDL HDL Ratio 1.38 RATIO (0.00-3.22); Osmolality Calculated 297 mOsm/kg (285-295); Potassium 3.8 mmol/L (3.5-5.1); Sodium 143 mmol/L (136-145); Total Bilirubin 0.3 mg/dL (0.15-1.2); Total Protein 7.4 g/dL (6.6-8.7); Triglycerides 78 mg/dL (0-150)
[2023-09-19 11:59] LABS: Estmated Average Glucose 146; Hemoglobin A1C 6.7 % (4.0-6.0)
[2023-09-19 12:34] LABS: Creatinine Urine, Random 77 mg/dL (28-217); Microalbum Creatinine Ratio Ur 13 mg/dL (0-20); Microalbumin Random Urine 1 ug/dL (0-20)
[2023-09-20 11:15] LABS: C-Peptide 5.06 ng/mL (0.80-3.85)
== END 2023-09-19 11:12 | disposition home or self-care (01) ==
LOC: LAB 11:12
PROVIDERS: PCP Family Medicine; Visit Provider Internal Medicine
DX: E11.65 Type 2 diabetes mellitus with hyperglycemia (principal); E78.2 Mixed hyperlipidemia; D64.9 Anemia, unspecified
CPT/HCPCS: 36415; 80053; 80061; 82044; 83036; 84681; 85025; 86337; 86341

== ENCOUNTER 2023-10-26 08:15 | Outpatient (CLI) | payer MEDICAID, SELFPAY ==
--- NOTE | 2023-10-26 08:17 | FL_ITS ---
WS: [id number] Barium swallow and esophagram, 10/26/2023 Clinical Data: DYSPHAGIA,PHARYNGOESOPHAGEAL PHASE/PAIN IN THROAT Comparison: None. Fluoroscopy time: 1min [id number] # of spot films: 8 Findings: The patient swallowed the thick and thin barium, and it flowed through the hypopharynx without hesita tion. No stricture, mass, polyp or erosion was seen. No aspiration or penetration occurred. The barium entered the esophagus and there was normal motility throughout. No reflux, stricture, margarita yp, mass, erosion or ulcer was noted. There was a small sliding hiatal hernia. The barium passed norm ally into the stomach. FL/FL barium swallow [id number] Impression: Small sliding hiatal hernia.
== END 2023-10-26 08:16 | disposition home or self-care (01) ==
LOC: RAD 08:15
PROVIDERS: PCP Family Medicine; Visit Provider Otolaryngology
DX: R13.14 Dysphagia, pharyngoesophageal phase (principal); D37.039 Neoplasm of uncertain behavior of the major salivary glands, unspecified; R07.0 Pain in throat; K44.9 Diaphragmatic hernia without obstruction or gangrene
CPT/HCPCS: 74220

== ENCOUNTER → 2023-10-31 15:40 | Outpatient (BNVA) | payer MEDICAID, SELFPAY | PROVIDERS: PCP Family Medicine; Visit Provider Internal Medicine Cardiovascular Disease | DX: I21.29 ST elevation (STEMI) myocardial infarction involving other sites (principal); I49.8 Other specified cardiac arrhythmias; R07.9 Chest pain, unspecified | CPT/HCPCS: 93005 ==

== ENCOUNTER 2023-11-02 13:00 | Outpatient (CLI) | payer MEDICAID, SELFPAY ==
--- NOTE | 2023-11-02 13:08 | CTR_ITS ---
PROCEDURE INFORMATION: Exam: CT Neck With Contrast Exam date and time: 11/02/2023 2:05 PM Age: 63 years old Clinical indication: Dysphagia / difficulty swallowing; Patient HX: Dysphagisa, pharyngoesophageal phase, pain in throat x 2-3 months. PT states she feels 2 knots. Bb placed; Additional info: Dysphagia, pharyngoesophageal phase/pain in throat TECHNIQUE: Imaging protocol: Computed tomography of the neck with contrast. Radiation optimization: All CT scans at this facility use at least one of these dose optimization techniques: automated exposure control; mA and/or kV adjustment per patient size (includes targeted exams where dose is matched to clinical indication); or iterative reconstruction. Contrast material: OMNI 350; Contrast volume: 100 ml; Contrast route: INTRAVENOUS (IV); COMPARISON: RF FL barium swallow [id number] 10/26/2023 8:28 AM RADIATION DOSE METRICS: Total DLP (mGy-cm): 247.6 FINDINGS: Salivary glands: Normal. Glands are normal in size. Pharynx: Unremarkable. No significant tonsillar enlargement. Prevertebral and retropharyngeal spaces: Unremarkable. Larynx: Unremarkable. Epiglottis is normal. Thyroid: Normal. No enlarged or calcified nodules. Trachea: Visualized trachea is unremarkable. Lungs: Unremarkable as visualized. Lymph nodes: Minimal prominence of lymph nodes in the neck, possibly corresponding to palpable abnormalities but they do not appear abnormally enlarged. Bones/joints: Partial fusion across C3-C4. Mild anterolisthesis C4-C5 with bilateral C4-C5 facet arthropathy. Soft tissues: Unremarkable. No significant soft tissue swelling. CT/CT neck w con* [id number] IMPRESSION: Minimal prominence of lymph nodes in the neck, possibly corresponding to palpable lesions but they do not appear abnormally enlarged.
[2023-11-02] MEDS: iohexol 350 mg/mL 500 mL Btl (per mL) IV (15:08)
== END 2023-11-02 13:01 | disposition home or self-care (01) ==
LOC: RAD 13:01
PROVIDERS: PCP Family Medicine; Visit Provider Otolaryngology
DX: R13.14 Dysphagia, pharyngoesophageal phase (principal); D37.039 Neoplasm of uncertain behavior of the major salivary glands, unspecified; R07.0 Pain in throat
CPT/HCPCS: 70491

== ENCOUNTER 2023-11-30 06:01 | Outpatient (CLI) | payer MEDICAID, SELFPAY ==
--- NOTE | 2023-11-30 06:15 | USCV_ITS ---
Gege Fitzpatrick Age: 63 Gender: F : 1960 Exam Date: 11/30/2023 06:19 Ordering Phys: Julissa Campbell MD ([email or web address]) Technologist: SARAHI Exam Location: [facility] [place] Indication: CHEST PAIN BP: 126 / 84 HR: 85 Rhythm: Sinus Technical Quality: Adequate MEASUREMENTS (Male / Female) Normal Values 2D ECHO LV Diastolic Diameter PLAX 4.2 cm 4.2 - 5.9 / 3.9 - 5.3 cm IVS Diastolic Thickness 1.1 cm 0.6 - 1.0 / 0.6 - 0.9 cm IVS Systolic Thickness 2.1 cm LVPW Diastolic Thickness 1.6 cm 0.6 - 1.0 / 0.6 - 0.9 cm LVPW Systolic Thickness 2.0 cm LVOT Diameter 2.0 cm LV Ejection Fraction 2D Teich 66.0 % LV Ejection Fraction MOD 4C 66.8 % LV Ejection Fraction MOD 2C 63.3 % LV Ejection Fraction 2C AL 63.3 % LA Diameter 3.4 cm RA Systolic Volume 4C AL 22.0 ml RA Systolic Volume 4C MOD 21.6 ml LA Sys Volume AL 30.2 cm cubed LA Sys Volume Index AL 13.6 cm cubed/m squared Aorta at Sinotubular Diameter 2.2 cm IVC Diameter 1.3 cm M-MODE LA Ao Ratio MM 1.3 AV Cusp Separation MM 1.6 cm DOPPLER AV Peak Velocity 134.0 cm/s LVOT Peak Velocity 91.0 cm/s AV Area Cont Eq vti 2.2 cm squared AV Area Cont Eq pk 2.1 cm squared MV Peak Velocity 107.0 cm/s MV Area PHT 5.6 cm squared TR Peak Velocity 121.0 cm/s TR Peak Gradient 5.9 mmHg TR Mean Velocity 102.0 cm/s TR Mean Gradient 4.4 mmHg TR Velocity Time Integral 34.6 cm TV Peak E Velocity 57.0 cm/s Right Atrial Pressure 3.0 mmHg Pulmonary Artery Systolic Pressu 8.9 mmHg PV Peak Velocity 84.0 cm/s RV Ejection Time 0.3 s FINDINGS Left Ventricle Normal left ventricular size and systolic function, EF 63%.no regional wall motion abnormalities. Technically difficult study because of the poor ultrasonic window Right Ventricle The right ventricle is normal in size and function. Right Atrium The right atrium is normal in size. Left Atrium The left atrium is normal in size. Mitral Valve No gross abnormalities noted Aortic Valve No gross abnormalities noted Tricuspid Valve Trace tricuspid valve regurgitation. Pulmonic Valve No gross abnormalities noted Pericardium Normal pericardium without effusion. Aorta Normal size aortic root and proximal ascending aorta. IVC Inferior vena cava not visualized. CONCLUSIONS Normal left ventricular size and systolic function, EF 63%. No regional wall motion abnormalities. Possibly normal chamber sizes. No gross valvular abnormalities. Trace of tricuspid regurgitation. Technically difficult study because of poor ultrasonic window Dr Julissa Campbell MD FACC (Electronically Signed) Final Date: 08 December 2023 08:23 S
== END 2023-11-30 06:02 | disposition home or self-care (01) ==
LOC: RAD 06:02
PROVIDERS: PCP Family Medicine; Visit Provider Internal Medicine Cardiovascular Disease
DX: R06.09 Other forms of dyspnea (principal)
CPT/HCPCS: 93306

== ENCOUNTER 2024-02-02 11:56 | Outpatient (CLI) | payer MEDICAID, SELFPAY ==
--- NOTE | 2024-02-02 12:11 | ECG_ITS ---
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 Interpretive Statements Lung unchanged pre/post procedure; Intraprocedure shortess of breath; Symptoms resoled by discharge PROCEDURE: At the baseline, the patient's blood pressure was with a heart rate of. The baseline electrocardiogram showed normal sinus rhythm with some nonspecific ST changes. The patient exercised for 4 minutes and 13 seconds on a standard Gareth protocol. Patient attained a maximum heart rate of 142 beats per minute(91% of the maximum predicted heart rate) with a blood pressure at the peak exercise of 196/83 mm Hg. The EKG at the peak exercise revealed some nonspecific ST change. Patient did not have any chest pain or any significant cardiac arrhythmias with the exercise During the recovery phase, there were no new changes. Blood pressure at the end of the recovery phase was 119/82 mm Hg with a heart rate of 89 per minute. CONCLUSION: 1. Nonspecific EKG response to treadmill exercise 2. No exercise-induced chest pain or cardiac arrhythmia 3. Impaired exercise tolerance, attained a maximum of 7.0 METs Electronically Signed On 02-03-2024 16:32:46 MEDICAL CLAIMS MANAGER by Julissa Campbell M.D. [email or web address]
[2024-02-02 12:15] VITALS: BMI 32.6
[2024-02-02 12:45] VITALS: BP 119/82; PULSE 89
== END 2024-02-02 11:57 | disposition home or self-care (01) ==
PROVIDERS: PCP Family Medicine; Visit Provider Internal Medicine Cardiovascular Disease
DX: R07.9 Chest pain, unspecified (principal); R06.09 Other forms of dyspnea; R06.02 Shortness of breath; E78.2 Mixed hyperlipidemia; E11.65 Type 2 diabetes mellitus with hyperglycemia
CPT/HCPCS: 93017

== ENCOUNTER 2024-04-04 10:40 | Outpatient (CLI) | payer MEDICAID, SELFPAY ==
--- NOTE | 2024-04-04 10:50 | XR_ITS ---
WS: [id number] Right hip, AP and frog-leg views, 04/04/2024 Clinical Data: right hip pain Comparison: Bilateral hips, 01/13/2021 Findings: No fractures or dislocations are seen. The right hip joint is intact. No erosion, sclerosis, narrowing or fragmentation of the right femoral head is seen. The soft tissues are not remarkable. The adjacent pelvis is normal. XR/XR hip RT 2-3V wo/w pel* [id number] Impression: Negative right hip.
[2024-04-04 11:31] LABS: Alanine Aminotransferase 74 U/L (0-33); Albumin Level 4.2 g/dL (3.5-5.2); Alkaline Phosphatase 143 U/L (35-105); Anion Gap 16.3 (5-19); Aspartate Amino Transferase 56 U/L (0-32); Blood Urea Nitrogen 15 mg/dL (8-23); Carbon Dioxide 22 mmol/L (22-29); Chloride 103 mmol/L (98-107); Chol HDL Ratio 3.97 mg/dL (0.0-4.40); Cholesterol 139 mg/dL (0-200); Globulin 2.5 g/dL (1.3-4.6); Glomerular Filtration Rate 72.2 mL/min (90-130); Glucose 467 mg/dL (65-115); HDL Cholesterol 35 mg/dL (60-100); LDL Cholesterol Calculated 55 mg/dL (50-129); LDL HDL Ratio 1.57 RATIO (0.00-3.22); Osmolality Calculated 305 mOsm/kg (285-295); Potassium 4.3 mmol/L (3.5-5.1); Sodium 137 mmol/L (136-145); Total Bilirubin 0.3 mg/dL (0.15-1.2); Total Protein 6.7 g/dL (6.6-8.7); Triglycerides 246 mg/dL (0-150)
[2024-04-04 11:41] LABS: Estmated Average Glucose 223; Hemoglobin A1C 9.4 % (4.0-6.0)
[2024-04-04 14:45] LABS: Creatinine Urine, Random 68 mg/dL (28-217); Microalbum Creatinine Ratio Ur 15 mg/dL (0-20); Microalbumin Random Urine 1 ug/dL (0-20)
== END 2024-04-04 10:41 | disposition home or self-care (01) ==
PROVIDERS: Family Provider Internal Medicine; PCP Family Medicine; Visit Provider Nurse Practitioner Family
DX: M25.551 Pain in right hip (principal); E11.65 Type 2 diabetes mellitus with hyperglycemia; E78.2 Mixed hyperlipidemia
CPT/HCPCS: 36415; 73502; 80053; 80061; 82044; 83036

== ENCOUNTER 2024-04-20 10:11 | Outpatient (CLI) | payer MEDICAID, SELFPAY ==
[2024-04-20 10:56] LABS: Free T4 Free Thyroxine 1.08 ng/dL (0.82-1.77); Thyroid Stimulating Hormone 2.92 uIU/mL (0.27-4.20)
== END 2024-04-20 10:12 | disposition home or self-care (01) ==
LOC: LAB 10:11
PROVIDERS: PCP Family Medicine; Visit Provider Internal Medicine
DX: E11.65 Type 2 diabetes mellitus with hyperglycemia (principal); E78.2 Mixed hyperlipidemia
CPT/HCPCS: 36415; 84439; 84443

== ENCOUNTER 2024-07-09 07:42 | Outpatient (CLI) | payer OTHER, MEDICAID, SELFPAY ==
[2024-07-09 09:11] LABS: Alanine Aminotransferase 96 U/L (0-33); Albumin Level 3.9 g/dL (3.5-5.2); Alkaline Phosphatase 97 U/L (35-105); Anion Gap 14.4 (5-19); Aspartate Amino Transferase 68 U/L (0-32); Blood Urea Nitrogen 20 mg/dL (8-23); Calcium 8.6 mg/dL (8.5-10.5); Carbon Dioxide 25 mmol/L (22-29); Chloride 105 mmol/L (98-107); Chol HDL Ratio 3.05 mg/dL (0.0-4.40); Cholesterol 125 mg/dL (0-200); Free T4 Free Thyroxine 0.96 ng/dL (0.82-1.77); Globulin 2.6 g/dL (1.3-4.6); Glomerular Filtration Rate 100.3 mL/min (90-130); Glucose 166 mg/dL (65-115); HDL Cholesterol 41 mg/dL (60-100); LDL Cholesterol Calculated 66 mg/dL (50-129); LDL HDL Ratio 1.61 RATIO (0.00-3.22); Osmolality Calculated 296 mOsm/kg (285-295); Potassium 4.4 mmol/L (3.5-5.1); Sodium 140 mmol/L (136-145); Thyroid Stimulating Hormone 1.04 uIU/mL (0.27-4.20); Total Bilirubin 0.4 mg/dL (0.15-1.2); Total Protein 6.5 g/dL (6.6-8.7); Triglycerides 89 mg/dL (0-150)
[2024-07-09 09:30] LABS: Creatinine Urine, Random 145 mg/dL (28-217); Microalbum Creatinine Ratio Ur 14 mg/dL (0-20); Microalbumin Random Urine 2 ug/dL (0-20)
[2024-07-09 09:43] LABS: Estmated Average Glucose 286; Hemoglobin A1C 11.6 % (4.0-6.0)
== END 2024-07-09 07:43 | disposition home or self-care (01) ==
LOC: LAB 07:45
PROVIDERS: PCP Nurse Practitioner Family; Visit Provider Internal Medicine
DX: E11.65 Type 2 diabetes mellitus with hyperglycemia (principal); E78.2 Mixed hyperlipidemia
CPT/HCPCS: 36415; 80053; 80061; 82044; 83036; 84439; 84443

== ENCOUNTER 2024-09-27 10:43 | Outpatient (CLI) | payer OTHER, MEDICAID, SELFPAY ==
--- NOTE | 2024-09-27 10:51 | XRR_ITS ---
PROCEDURE INFORMATION: Exam: XR Cervical Spine Exam date and time: 09/27/2024 10:56 AM Age: 64 years old Clinical indication: Neck pain; X6 months headaches, neck and ear pain that runs down right shoulder; Additional info: Headache and neck pain TECHNIQUE: Imaging protocol: Radiologic exam of the cervical spine. Views: 6 or more views. COMPARISON: CT neck w con* [id number] 11/02/2023 2:05 PM FINDINGS: Bones/joints: There is mild convex right curvature of the upper cervical spine at C3-C4. There is osseous interbody and facet fusion at C3-C4. There is 4 mm anterolisthesis of C4 on C5 in the neutral and flexed position, decreasing to 2 mm in extension. There is normal alignment at C5-C6 in flexion, and 2 mm retrolisthesis of C5 on C6 in the neutral position, and increasing to 4 mm retrolisthesis in extension. There is mild multilevel bilateral osseous neural foraminal stenosis. Soft tissues: Visible soft tissues are unremarkable. XR/XR cervical spine min 6V [id number] IMPRESSION: Spondylolisthesis of variable degree depending on position at C4-C5 and C5-C6. Details above.
== END 2024-09-27 10:44 | disposition home or self-care (01) ==
LOC: RAD 10:46
PROVIDERS: PCP Family Medicine; Visit Provider Nurse Practitioner Family
DX: M43.12 Spondylolisthesis, cervical region (principal); R51.9 Headache, unspecified
CPT/HCPCS: 72052